=== PATIENT | male | born 1980 ===

== ENCOUNTER 2017-04-05 14:09 | Emergency (ER) | payer OTHER ==
[2017-04-05 14:16] VITALS: BMI 27.8
[2017-04-05 14:19] VITALS: O2SAT 100
[2017-04-05] MEDS ORDERED: Sodium Chloride 0.9% 1,000 ML IV ONE (14:37)
[2017-04-05] MEDS ORDERED: DiphenhydrAMINE 50 mg/ml Inj IVP STA (14:38)
[2017-04-05 15:22] LABS: BASO % 0.1 % (0.0-2.0); EOS # 0.9 K/uL (0.0-0.7); EOS % 6.2 % (0.0-4.0); HEMATOCRIT 45.3 % (35.0-51.0); LYMPH # 1.6 K/uL (1.0-4.3); LYMPH % 10.4 % (20.0-40.0); MEAN CELL VOLUME 85.3 fL (80.0-94.0); MEAN CORPUSCULAR HEMOGLOBIN 28.4 pg (27.0-31.0); MEAN CORPUSCULAR HGB CONC 33.3 g/dL (33.0-37.0); MEAN PLATELET VOLUME 7.3 fL (7.2-11.7); MONO # 1.1 K/uL (0.0-0.8); MONO % 7.1 % (0.0-10.0); WHITE BLOOD COUNT 14.9 K/uL (4.8-10.8)
--- NOTE | 2017-04-05 16:25 | C.PDOC ---
History Of Present Illness Pt c/o diffuse rash, greatest on forearms. Time Seen by Provider: 04/05/17 14:20 Chief Complaint (Nursing): Abnormal Skin Integrity History Per: Patient Onset/Duration Of Symptoms: Days (3) Current Symptoms Are (Timing): Still Present Quality Of Symptoms: Painful, Swollen, Draining Severity: Moderate Recent travel outside of the [place]: No Additional History Per: Prior Records Past Medical History Reviewed: Historical Data, Nursing Documentation, Vital Signs Vital Signs: Last Vital Signs Temp 97.6 F 04/05/17 14:16 Pulse 87 04/05/17 14:16 Resp 18 04/05/17 14:16 BP 132/74 04/05/17 14:16 Pulse Ox 100 04/05/17 14:16 - Medical History PMH: No Chronic Diseases Family History: States: Unknown Family Hx - Social History Hx Alcohol Use: No Hx Substance Use: No - Immunization History Hx Tetanus Toxoid Vaccination: No Hx Influenza Vaccination: Yes Hx Pneumococcal Vaccination: No Review Of Systems Except As Marked, All Systems Reviewed And Found Negative. Constitutional: Negative for: Fever, Chills, Weakness ENT: Negative for: Mouth Pain, Mouth Swelling, Throat Pain, Throat Swelling Cardiovascular: Negative for: Chest Pain Respiratory: Negative for: Cough, Shortness of Breath Gastrointestinal: Negative for: Vomiting, Abdominal Pain Genitourinary: Negative for: Dysuria Musculoskeletal: Negative for: Neck Pain Skin: Positive for: Rash Neurological: Negative for: Weakness, Numbness, Seizures, Altered Mental Status Physical Exam - Physical Exam Appears: Non-toxic, No Acute Distress Skin: Warm, Rash (erthematous diffuse rash, worse on b/l forearms with vesicular component on forearms. ) Head: Atraumatic, Normacephalic Eye(s): bilateral: Normal Inspection, PERRL, EOMI Oral Mucosa: Moist, No Drooling, No Trismus Tongue: Normal Appearing Lips: Normal Appearing Throat: Normal Neck: Normal ROM, Supple Cardiovascular: Rhythm Regular Respiratory: Normal Breath Sounds, No Accessory Muscle Use Gastrointestinal/Abdominal: Soft, No Tenderness Back: No CVA Tenderness Extremity: Normal ROM, Capillary Refill (wnl), Swelling (of b/l forearms) Pulses: Left Radial: Normal, Right Radial: Normal Neurological/Psych: Oriented x3, Normal Motor, Normal Sensation ED Course And Treatment - Laboratory Results Result Diagrams: 04/05/17 15:15 O2 Sat by Pulse Oximetry: 100 Pulse Ox Interpretation: Normal Reassessment Condition: Improved Progress - Interventions Interventions:: Observation - Medications Administered Oral: Antihistamine(H-1), H-2 [place] Subcutaneous: other (Corticosteroid) - Data Reviewed Data Reviewed: Lab, Old records - Patient Status Patient status: Partially improved - Continuity of Care Discussed patient case with:: Patient, ED Nurse - Patient Plan Patient Plan: Discharge, F/U with PCP Disposition Counseled Patient/Family Regarding: Studies Performed, Diagnosis, Need For Followup, Rx Given - Disposition Referrals: [facility] [Outside] Disposition: HOME/ ROUTINE Disposition Time: 16:28 Condition: STABLE Additional Instructions: Follow up with a Driver Trainee for further evaluation and treatment. Follow up in the clinic. Return to the ER if you develop fever, sores in mouth, throat or eyes, worsening of symptoms or if you have any other concerns. Prescriptions: Cephalexin [cephalexin] 500 mg PO QID #40 cap DiphenhydrAMINE [Benadryl] 25 mg PO Q4 PRN #30 cap PRN Reason: Allergy Symptoms Methylprednisolone [Medrol] 1 dose PO DAILY #1 packet Instructions: Acute Rash (ED) Forms: [employer] (Nepalese) - Clinical Impression Clinical Impression: Generalized rash
[2017-04-05 16:36] VITALS: BP 135/72; PULSE 75; RESP 22; TEMP 99.6
== END 2017-04-05 16:41 | disposition home or self-care (01) ==
LOC: C.ER 14:09
DX: R21 Rash and other nonspecific skin eruption (principal)
CPT/HCPCS: 85025; 96372; 99283; J2930

== ENCOUNTER 2017-04-06 11:50 | Emergency (ER) | payer OTHER ==
[2017-04-06 11:50] VITALS: BMI 27.8
--- NOTE | 2017-04-06 12:26 | C.PDOC ---
History Of Present Illness <Evita Dickson - Last Filed: 04/06/17 12:31> <Linette Ashraf - Last Filed: 04/06/17 13:40> 36 y/o male, evaluated in this ER yesterday diagnosed with allergic reaction, c/ o burning sensation to bilateral arms, chest, and face. Patient treated with Solumedrol, Pepcid, and Benadryl yesterday and discharged home. Pt states he took medication this morning, but states burning sensation became severe. Denies fever, chills, intraoral swelling, SOB, wheezing, nausea, vomiting, diarrhea, or other associated symptoms. (Linette Ashraf) <Evita Dickson - Last Filed: 04/06/17 12:31> History Per: Patient History/Exam Limitations: no limitations Onset/Duration Of Symptoms: Days Current Symptoms Are (Timing): Worse Location Of Injury: Right: Abdomen, Arm, Chest, Left: Abdomen, Arm, Chest, Anterior: Abdomen, Arm, Chest Quality Of Symptoms: Painful (burning). denies: Draining Recent travel outside of the [place]: No <Linette Ashraf - Last Filed: 04/06/17 13:40> Time Seen by Provider: 04/06/17 12:00 Chief Complaint (Nursing): Abnormal Skin Integrity Past Medical History Reviewed: Historical Data, Nursing Documentation, Vital Signs - Medical History PMH: No Chronic Diseases Family History: States: Unknown Family Hx - Social History Hx Alcohol Use: No Hx Substance Use: No - Immunization History Hx Tetanus Toxoid Vaccination: No Hx Influenza Vaccination: Yes Hx Pneumococcal Vaccination: No <Linette Ashraf - Last Filed: 04/06/17 13:40> Vital Signs: Last Vital Signs Temp 98 F 04/06/17 11:54 Pulse 92 H 04/06/17 11:54 Resp 16 04/06/17 11:54 BP 149/75 04/06/17 11:54 Pulse Ox 100 04/06/17 12:29 Review Of Systems Except As Marked, All Systems Reviewed And Found Negative. Constitutional: Negative for: Fever, Chills Respiratory: Negative for: Cough, Shortness of Breath, Wheezing Gastrointestinal: Negative for: Vomiting Skin: Positive for: Rash Neurological: Negative for: Dizziness <Linette Ashraf - Last Filed: 04/06/17 13:40> Physical Exam - Physical Exam Appears: Non-toxic, No Acute Distress Skin: Warm, Dry, Rash (Erythema, scaling vesicles to bilateral volar arm extending arm to forearm. Linear vesicular rash to upper abdominal and lower chest area. Mild erythema of the face.) Head: Atraumatic, Normacephalic Eye(s): bilateral: Normal Inspection, PERRL, EOMI Ear(s): Bilateral: Normal Nose: Normal Oral Mucosa: Moist Throat: Normal, No Erythema, No Exudate, No Drooling, Other (uvula midline) Neck: Supple Chest: Symmetrical, Other (see skin exam) Cardiovascular: Rhythm Regular Respiratory: Normal Breath Sounds, No Rales, No Rhonchi, No Stridor, No Wheezing Gastrointestinal/Abdominal: Soft, No Tenderness, No Guarding, No Rebound, Other (see skin exam) Back: Normal Inspection Extremity: Normal ROM, Capillary Refill (< 2 sec.), Other (see skin exam) Neurological/Psych: Oriented x3, Normal Speech, Normal Cognition <Linette Ashraf - Last Filed: 04/06/17 13:40> ED Course And Treatment O2 Sat by Pulse Oximetry: 100 (RA) Pulse Ox Interpretation: Normal <Linette Ashraf - Last Filed: 04/06/17 13:40> Supervising Attending Note - Supervising Attending Note The Documented history was done by the: Physician Food Mixer The documented physical exam was done by the: Physician Food Mixer The documented procedures were done by the: Physician Food Mixer - Attestation: I have personally seen and examined this patient.: Yes I have fully participated in the care of the patient.: Yes I have reviewed all pertinent clinical information, including history, physical exam and plan: Yes <Evita Dickson - Last Filed: 04/06/17 12:31> <Linette Ashraf - Last Filed: 04/06/17 13:40> - Notes: Notes:: CONTACT DERMATITIS X 4 DAYS. CONCERNED FOR BURNING ON FACE. COMPLIANT W MEDS. EXAM ABOVE. INCREASE TO PREDNISONE 60 MG X 4 DAYS (SP SOLUMEDROL 04/05/17), TOPICAL ALOE GEL, AVEENO, CALAMINE FU PMD (Evita Dickson) Disposition <Evita Dickson - Last Filed: 04/06/17 12:31> - Disposition Disposition Time: 13:38 <Linette Ashraf - Last Filed: 04/06/17 13:40> - Disposition Disposition: HOME/ ROUTINE Condition: STABLE Additional Instructions: Follow up with PMD/clinic as instructed. Return to Ed if feel worse. Prescriptions: predniSONE [predniSONE Tab] 2 tab PO DAILY #6 tab Instructions: Contact Dermatitis (ED) Forms: [employer] ([place]) - Clinical Impression Clinical Impression: Contact dermatitis <Evita Dickson - Last Filed: 04/06/17 12:31> - PA / POUNCING LATHE OPERATOR / Resident Statement MD/ has reviewed & agrees with the documentation as recorded. - Scribe Statement The provider has reviewed the documentation as recorded by the Scribe <Linette Ashraf - Last Filed: 04/06/17 13:40> - Scribe Statement SGM All medical record entries made by the Scribe were at my direction and personally dictated by me. I have reviewed the chart and agree that the record accurately reflects my personal performance of the history, physical exam, medical decision making, and the department course for this patient. I have also personally directed, reviewed, and agree with the discharge instructions and disposition. (Linette Ashraf)
[2017-04-06 13:47] VITALS: BP 113/63; PULSE 60; RESP 18; TEMP 97.8
[2017-04-06 15:34] VITALS: O2SAT 100
== END 2017-04-06 13:48 | disposition home or self-care (01) ==
LOC: C.ER 11:50
DX: L25.9 Unspecified contact dermatitis, unspecified cause (principal)